=== PATIENT | male | born 1965 | race Caucasian/White ===

== ENCOUNTER → 2017-11-24 | Outpatient (CLI) | payer BC ==
[2017-11-24 15:02] LABS: Blood Urea Nitrogen 15 mg/dL (9-20)
--- NOTE | 2017-11-24 15:48 | CT ---
EXAMINATION TYPE: CT abdomen pelvis w con DATE OF EXAM: 11/24/2017 COMPARISON: Prior CT abdomen pelvis 08/28/2017 HISTORY: Testicular CA CT DLP: 1151.1 mGycm Automated exposure control for dose reduction was used. TECHNIQUE: Helical acquisition of images from the lung bases through the pelvis have been completed. CONTRAST: Performed with Oral Contrast and with IV Contrast, patient injected with 100 mL of Omnipaque 300. FINDINGS: LUNG BASES: No significant abnormality is appreciated. AORTA: No significant abnormality is appreciated. LIVER/GB: Liver shows low attenuation suggestive of hepatic steatosis, gallbladder is normal. PANCREAS: No significant abnormality is seen. SPLEEN: Stable. ADRENALS: No significant abnormality is seen. KIDNEYS: Cortical cysts again noted within the kidney REPRODUCTIVE ORGANS: Prostate shows some associated calcification. Right groin shows possible scarri ng, correlate for prior surgery. Suspect prior right sided orchiectomy. BOWEL: Colonic wall thickening noted especially in the rectosigmoid, some scattered diverticular pre sent, there is no bowel obstruction and the appendix is normal. FREE AIR: No Free Air visible. ASCITES: None visible. PELVIC ADENOPATHY: None visualized. RETROPERITONEAL ADENOPATHY: No Retroperitoneal Adenopathy visible. URINARY BLADDER: No significant abnormality is seen. OSSEOUS STRUCTURES: Degenerative disc changes especially at L5-S1 with vacuum phenomenon, loss of di sc height, spondylosis. Umbilical hernia contains fat. IMPRESSION: COLONIC WALL THICKENING MAY BE DUE TO LACK OF DISTENTION OR MUSCULAR HYPERTROPHY. DIFFICULT TO EXCLUD E A MUCOSAL LESION. Nonspecific findings above, diverticulosis, follow-up as indicated
== END | disposition home or self-care (01) ==
LOC: RADCTMAIN 14:21
PROVIDERS: ATTEND Internal Medicine Hematology & Oncology
DX: C62.11 Malignant neoplasm of descended right testis (principal); K63.89 Other specified diseases of intestine; K57.30 Diverticulosis of large intestine without perforation or abscess without bleeding
CPT/HCPCS: 82565; 84520; 74177; 36415; Q9967

== ENCOUNTER → 2018-06-11 | Outpatient (CLI) | payer BC ==
--- NOTE | 2018-06-11 13:39 | CT ---
EXAMINATION TYPE: CT abdomen pelvis w con DATE OF EXAM: 06/11/2018 COMPARISON: CT abdomen and pelvis November 24, 2017 and older study August 28, 2017 HISTORY: History of right-sided orchiectomy for testicular cancer. CT DLP: 982.4 mGycm, Automated Exposure Control for Dose Reduction was Utilized. CONTRAST: CT scan of the abdomen and pelvis is performed with oral and with IV Contrast, patient injected with 100 mL of Isovue 300. FINDINGS: LUNG BASES: Dependent atelectasis is seen in both bases. LIVER/GB: No significant abnormality is appreciated. PANCREAS: No significant abnormality is seen. SPLEEN: There is 1.4 cm splenule posterior to the spleen. ADRENALS: No significant abnormality is seen. KIDNEYS: There is 2.0 x 1.0 simple appearing cyst posteriorly upper pole level right kidney series 7 image 35. There are simple appearing 1.0 cm exophytic cyst posteriorly upper pole level left kidney a xial image 32. BOWEL: Oral contrast reaches level of the distal transverse colon. No suspicious small or large bowel dilatation is present. Appendix is felt within normal limits from base of cecum. Some diverticula ar e seen in sigmoid colon. No CT evidence for acute diverticulitis. PROSTATE/SEMINAL VESICLES: Central calculations are seen in prostate. Surrounding phleboliths are pre sent. Prostate gland is upper limits of normal in size. LYMPH NODES: No greater than 1cm abdominal or pelvic lymph nodes are appreciated. OSSEOUS STRUCTURES: Mild facet arthropathy lower lumbar spine. Persistent moderate to advanced disc s pace narrowing L5-S1 level. OTHER: Surgical scar right groin region from orchiectomy is redemonstrated. There is persistent moder ate to large sized umbilical hernia containing fat and tiny mesenteric vessels. IMPRESSION: No suspicious new mass or adenopathy is seen to suggest neoplastic recurrence.
== END | disposition home or self-care (01) ==
LOC: RADCTMAIN 11:29
PROVIDERS: ATTEND Internal Medicine Hematology & Oncology
DX: C62.90 Malignant neoplasm of unspecified testis, unspecified whether descended or undescended (principal)
CPT/HCPCS: 74177; Q9967